=== PATIENT | female | born 1955 | race African-American/Black ===

== ENCOUNTER 2016-06-09 09:18 | Emergency (ER) | payer MEDICAID ==
[~2016-06-09] VITALS: Ht 165.1 cm; Wt 70.0 kg
[~2016-06-09 09:18] MED LIST: AMIT75 PO; ASPI81TA82 PO; DIVA500T8 PO; GABA100C4 PO; GLIM2TAB PO; HYDR-2768 PO; HYDR-3535 PO; LISI-591 PO; POTA-267 PO; RISP1TAB2 PO; SIMV40TA PO
[2016-06-09 09:20] VITALS: BP 188/131; PULSE 93; RESP 18; TEMP 98.1; O2SAT 99
[2016-06-09] MEDS ORDERED: BENZ100 PO (10:39)
[2016-06-09] MEDS ORDERED: PRED50 PO (10:39)
[2016-06-09] MEDS ORDERED: ALBUAER3 INH (10:39)
--- NOTE | 2016-06-09 10:40 | PD ---
HPI Chief Complaint: Cold / Flu Symptoms Time Seen by Provider: 10:29 Travel History International Travel<30 days: No Contact w/Intl Traveler<30days: No Traveled to known affect area: No History of Present Illness HPI 61 yr old female with HTN, HLD, hx of psychosis, schizophrenia, tobaccoism for 40 years, and DM who follows with Dr. Rocha here with c/o coughing and bringing up clear thin secretions for 1 week. She says she started off with flu like symptoms 1 week ago and now developed a cough that doesn't seem to go away and has lost her voice. She denies any fever or chills. She denies any cp, worsening sob, nausea, vomiting, or diaphoresis. Her blood pressure is elevated and she tells me she did not take her medications today. PFSH Past Medical History Hx Anticoagulant Therapy: Yes Arthritis: Yes Depression: Yes Heart Rhythm Problems: No Cardiovascular Problems: Yes (HIGH BP) High Cholesterol: Yes Chest Pain: No Congestive Heart Failure: No Diabetes: Yes Diminished Hearing: No GERD: Yes Hypertension: Yes Musculoskeletal: Yes (CERVICAL DISC BULGING CAUSING NERVE PROBLEMS IN HEAD/ LEFT SIDE OF BODY) Psychiatric: Yes Myocardial Infarction: No Menopausal: Yes : 4 Para: 4 Past Surgical History Coronary Artery Bypass Graft: No Hysterectomy: Yes Social History Alcohol Use: Yes (SOCIALLY) Tobacco Use: Yes (<1/2 ppd) Substance Use: No Allergies-Medications (Allergen,Severity, Reaction): Coded Allergies: Demerol (Verified Adverse Reaction, Mild, "HYPERVENTILATION", 06/17/15) Reported Meds & Prescriptions Reported Meds & Active Scripts Active Proair Hfa 8.5 GM Inh (Albuterol Sulfate) 90 Mcg/Act Aer 2 Puff INH Q6H PRN 108 mcg/actuation Tessalon Perles (Benzonatate) 100 Mg Cap 100 Mg PO TID PRN Prednisone 50 Mg Tab 50 Mg PO DAILY Reported Zestril 20 mg (Lisinopril) 20 Mg Tab 20 Mg PO DAILY Lortab 10 mg/325 mg (Hydrocodone/Acetaminophen 10 mg/325 mg) 1 Tab 1 Tab PO BID Aspir-81 (Aspirin) 81 Mg Tab 81 Mg PO DAILY Glimepiride 2 Mg Tab 2 Mg PO DAILY Hctz (Hydrochlorothiazide) 25 Mg Tab 25 Mg PO DAILY Klor-Con 10 (Potassium Chloride) 10 Meq Tab 10 Meq PO DAILY Divalproex [id number] M3 500 Mg Tab 500 Mg PO DAILY Risperidone 1 Mg Tab 1 Mg PO DAILY Gabapentin 100 Mg Cap 100 Mg PO DAILY Elavil 75 Mg T75 Mg 75 Mg Tab 75 Mg PO HS Simvastatin 40 Mg Tab 40 Mg PO HS Review of Systems General / Constitutional: No: Fever Eyes: No: Visual changes HENT: No: Headaches Cardiovascular: No: Chest Pain or Discomfort Respiratory: Positive: Cough, Shortness of Breath (intermittent) Gastrointestinal: No: Abdominal Pain Genitourinary: No: Dysuria Musculoskeletal: No: Pain Skin: No Rash Neurologic: No: Weakness Psychiatric: No: Depression Endocrine: No: Polydipsia Hematologic/Lymphatic: No: Easy Bruising Physical Exam Narrative Physical Exam GENERAL: AAOX3, NAD, comfortable HEAD: normocephalic, atraumatic EARS: normal pinna, no deformities EYES: clear fundus, no icterus THROAT: top and bottom dentures, no posterior pharynx erythema or exudates NECK: supple, no lympadenopathy LUNGS: CTAB, no audible rales, rhonchi or wheezing HEART: S1 and S2, RRR, no rubs, murmur or gallop ABD: soft,, NT, ND BACK: normal spine NEURO: grossly intact PSYCH: AAO x 3, normal affect, Data Data Last Documented VS Vital Signs Date Time Temp Pulse Resp B/P Pulse Ox O2 Delivery O2 Flow Rate FiO2 06/09/16 11:02 20 Room Air 06/09/16 09:20 98.1 93 188/131 99 MDM Medical Decision Making Medical Screen Exam Complete: Yes Emergency Medical Condition: Yes Medical Record Reviewed: Yes Differential Diagnosis bronchitis, laryngitis, sinusitis, less likely CHF, less likely COPD exacerbation Narrative Course 61 yr old female with HTN, HLD, hx of psychosis, schizophrenia, tobaccoism for 40 years, and DM who follows with Dr. Rocha here with c/o coughing and bringing up clear thin secretions for 1 week. She says she started off with flu like symptoms 1 week ago and now developed a cough that doesn't seem to go away and has lost her voice. She denies any fever or chills. She denies any cp, worsening sob, nausea, vomiting, or diaphoresis. Her blood pressure is elevated and she tells me she did not take her medications today. Patient seen and examined. Case Discussed with Dr. Graham. Recommend prednisone for bronchitis. Advised that laryngitis is self limiting. Try hot tea and honey for comfort. Follow up with primary care provider in 1-3 days. Patient Instructions: Acute Bronchitis (ED), General Instructions Additional Instructions: Take medications as prescribed. Follow up with Dr. Rocha in 1-3 days. Make sure to take your blood pressure meds daily. Return to the ED if your symptoms worsen. Med/Other Pt SpecificInfo: Prescription(s) given Scripts Albuterol 8.5 GM Inh (Proair Hfa 8.5 GM Inh)90 Mcg/Act Aer2 Puff INH Q6H PRN ( SHORTNESS OF BREATH) #1 INHALER Ref 0 108 mcg/actuation Prov:Vianca Padilla 06/09/16 Benzonatate (Tessalon Perles)100 Mg [id number] Mg PO TID PRN (COUGH) #20 CAP Ref 0 Prov:Vianca Padilla 06/09/16 Prednisone 50 Mg Tab50 Mg PO DAILY #5 TAB Ref 0 Prov:Vianca Padilla 06/09/16 Disposition: 01 DISCHARGE HOME Condition: Stable Vianca Padilla Jun 09, 2016 10:40
--- NOTE | 2016-06-09 10:52 | PD ---
Data Data Last Documented VS Vital Signs Date Time Temp Pulse Resp B/P Pulse Ox O2 Delivery O2 Flow Rate FiO2 06/09/16 09:20 98.1 93 18 188/131 99 Room Air [facility] Supervised Visit with TWAN: Yes Narrative Course I, Dr. Graham, have reviewed the advance practice practioner's documentation and am in agreement, met with the patient face to face, made the diagnosis, and the medical decision making was done by me. *My assessment and Findings: 61-year-old female here with complaint of one-week of cough cold chest congestion. Now she is lost her voice. Her most bothersome symptom is her hoarse voice. States that she's had this in the past and has used prednisone with success. Her second most bothersome symptom is her cough. Clear to auscultation bilaterally. Minimal erythema in the posterior pharynx. Symptoms most consistent with bronchitis, laryngitis. We' ll treat symptomatically with steroids and Tessalon Perles for home. Diagnosis Primary Impression: Acute bronchitis Qualified Code: J20.9 - Acute bronchitis, unspecified organism Patient Instructions: General Instructions, Acute Bronchitis (ED) Departure Forms: Tests/Procedures Additional Instruction: Take medications as prescribed. Follow up with Dr. Rocha in 1-3 days. Make sure to take your blood pressure meds daily. Return to the ED if your symptoms worsen. Scripts Albuterol 8.5 GM Inh (Proair Hfa 8.5 GM Inh)90 Mcg/Act Aer2 Puff INH Q6H PRN ( SHORTNESS OF BREATH) #1 INHALER Ref 0 108 mcg/actuation Prov:Vianca Padilla 06/09/16 Benzonatate (Tessalon Perles)100 Mg [id number] Mg PO TID PRN (COUGH) #20 CAP Ref 0 Prov:Vianca Padilla 06/09/16 Prednisone 50 Mg Tab50 Mg PO DAILY #5 TAB Ref 0 Prov:Vianca Padilla 06/09/16 Disposition: 01 DISCHARGE HOME Condition: Stable Anayeli Graham MD Jun 09, 2016 10:52
== END 2016-06-09 11:03 | disposition home or self-care (01) ==
LOC: NETRI 09:18
DX: J20.9 Acute bronchitis, unspecified (principal); I10 Essential (primary) hypertension; E78.00 Pure hypercholesterolemia, unspecified; E11.9 Type 2 diabetes mellitus without complications; F17.210 Nicotine dependence, cigarettes, uncomplicated
CPT/HCPCS: 99283